=== PATIENT | male | born 1940 | race Caucasian/White ===

== ENCOUNTER 2018-07-24 14:08 | Emergency (ER) | payer MEDICARE, OTHER ==
[~2018-07-24] VITALS: Ht 170.2 cm; Wt 77.1 kg
[~2018-07-24 14:08] MED LIST: ASPIRIN EC325 MG PO; ASPIRIN EC81 MG PO; DULCOLAX STOOL100 MG PO; KEFLEX500 MG PO; LIPITOR40 MG PO; LISINOPRIL10 MG PO; METOPROLOL TART25 MG PO; NOVOLIN 70100 UNIT/1 INJ
[2018-07-24] MEDS ORDERED: ULTRAM50 MG PO (15:43)
== END 2018-07-24 16:27 | disposition home or self-care (01) ==
LOC: ED 14:08
PROC: 0S9D3ZZ Drainage of Left Knee Joint, Percutaneous Approach (ICD-10-PCS; principal; 2018-07-24)
DX: S82.002A Unspecified fracture of left patella, initial encounter for closed fracture (principal); E11.9 Type 2 diabetes mellitus without complications; Z79.4 Long term (current) use of insulin; Z79.82 Long term (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; Z79.899 Other long term (current) drug therapy; W01.0XXA Fall on same level from slipping, tripping and stumbling without subsequent striking against object, initial encounter
CPT/HCPCS: 20610; 73562; 99283-25

== ENCOUNTER 2020-06-03 20:25 | Emergency (ER) | payer OTHER, MEDICARE ==
[~2020-06-03] VITALS: Ht 170.2 cm; Wt 77.1 kg
[~2020-06-03 20:25] MED LIST changes: +ULTRAM50 MG PO
[2020-06-03] MEDS ORDERED: METFORMIN HCL500 M1 PO (21:21)
[2020-06-03] MEDS ORDERED: CARVEDILOL12.5 MG PO (21:21)
[2020-06-03] MEDS ORDERED: HYDROCODON-ACE1 EA10 PO (22:11)
[2020-06-03] MEDS ORDERED: CRUTCH1 EACH MISC (22:12)
== END 2020-06-03 22:36 | disposition home or self-care (01) ==
LOC: ED 20:25
DX: S82.034A Nondisplaced transverse fracture of right patella, initial encounter for closed fracture (principal); W01.0XXA Fall on same level from slipping, tripping and stumbling without subsequent striking against object, initial encounter; E11.9 Type 2 diabetes mellitus without complications; E78.00 Pure hypercholesterolemia, unspecified; I10 Essential (primary) hypertension; Z79.899 Other long term (current) drug therapy; Z79.4 Long term (current) use of insulin; Z79.82 Long term (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
CPT/HCPCS: 73560; 99283-25

== ENCOUNTER 2020-06-09 07:55 | Day surgery (SDC) | payer OTHER, MEDICARE ==
[~2020-06-09] VITALS: Ht 170.2 cm; Wt 80.0 kg
[~2020-06-09 07:55] MED LIST changes: +CARVEDILOL12.5 MG PO; +CRUTCH1 EACH MISC; +HYDROCODON-ACE1 EA10 PO; +METFORMIN HCL500 M1 PO
--- NOTE | 2020-06-09 11:04 | NUR ---
06/09/20 1104 Viki Vargas 1056 PATIENT ARRIVES TO PACU UNRESPONSIVE TO VERBAL STIMULI. RESP EVEN AND UNLABORED, MASK 6 LITERS.
[2020-06-09] MEDS ORDERED: DICLOFENAC SODI75 MG PO (11:05)
[2020-06-09] MEDS ORDERED: XARELTO10 MG PO (11:05)
[2020-06-09] MEDS ORDERED: HYDROCODON-ACE1 EA11 PO (11:05)
--- NOTE | 2020-06-09 11:45 | NUR ---
PATIENT BACK TO ROOM FROM PACU. BEDSIDE REPORT FROM MANISH WISDOM. PATIENT SPINAL AT L1 LEVEL, REPORTS FEELING NUMB. DRESSING C/D/I WITH ICE IN PLACE. AT BEDSIDE, CALL LIGHT WITHIN REACH.
--- NOTE | 2020-06-09 13:22 | NUR ---
STOOD PATIENT AT BEDSIDE WITH 2 PERSON ASSIST, PATIENT REPORTED LEFT LEG "MUST BE A LITTLE NUMB" PATIENT APPEARS TO HAVE TROUBLE STANDING UP AND MOVING LEGS TOWARD WHEELCHAIR. SAT BACK ON BED, BRACE IN LOCKED POSITION. THEN STOOD PATIENT AT BEDSIDE WITH 2 PERSON ASSIST TO USE URINAL, PATIENT VOIDED 100 ML OF CLEAR URINE. PATIENT NOW RESTING BACK IN BED SET UP WITH LUNCH. AT BEDSIDE TO ASSIST. DRESSING TO RIGHT KNEE C/D/I. ICE IN PLACE. CALL LIGHT WITHINR REACH.
--- NOTE | 2020-06-09 13:46 | NUR ---
PATIENT ATE 100% OF LUNCH, REQUESTED TO URINATE AGAIN. UP AT BEDSIDE WITH 2 PERSON STBY ASSIST, PATIENT APPEARS TO BE MORE STABLE ON FEET AND ABLE TO TAKE SIDE STEPS. VOIDED 250 ML OF URINE. BACK TO BED, CALL LIGHT WITHIN REACH. PATIENT'S LEFT AND PLANS TO BE BACK LATER, CONFIRMED CELL PHONE.
--- NOTE | 2020-06-09 14:00 | NUR ---
PATIENT HAD STOOD TO URINATE, APPEARED TO STAND TALL WITH 1 PERSON ASSIST. VOIDED 300 ML OF CLEAR YELLOW URINE. PATIENT STATED " I AM HAVING ALOT OF IN MY BLADDER AND STILL FEEL LIKE I NEED TO GO BAD". BLADDER SCANNED PATIENT WITH ESTIMATE OF 800 ML OF URINE. CALL TO DR. ELDRIDGE WHO VERBALIZED NEW ORDER FOR STRAIGHT CATH.
--- NOTE | 2020-06-09 14:30 | NUR ---
STRAIGHT CATH PERFORMED, 16 GREEK CATHETER WOULD NOT ADVANCE INTO BLADDER. STOPPED AND RETRIED WITH 14 GREEK COUDE, PATIENT TOLERATED WELL AND THERE WAS NO RESISTANCE WITH ADVANCEMENT. BLADDER DRAINING WELL, PATIENT VERBALIZES PAIN IN BLADDER RESOLVING.
--- NOTE | 2020-06-09 15:40 | NUR ---
PATIENT ASSISTED TO STAND AT BEDSIDE TO USE URINAL BY 2 RNs. VOIDED 125 ML OF CLEAR PALE YELLOW URINE. ASSISTED BACK TO BED. CALL LIGHT WITHIN REACH.
--- NOTE | 2020-06-09 16:23 | NUR ---
NOTIFIED DR. DIAZ OF PATIENT LAB VALUES AND NEED FOR CLOSE FOLLOW UP. THEN WALKED RESULTS DOWN TO CLINIC TO DELIVER. DR. DIAZ THEN CALLED DEPARTMENT AND REQUESTED REPEAT CBC AND CMP FOR HIS FOLLOW UP. CALL TO DR. ELDRIDGE WHO OKAYED TO ORDER REPEAT LABS. PATIENT ALSO HAD VOIDED 125 ML OF URINE, AND HAD PVR OF 275 ML WITH BLADDER SCANNER. DR. ELDRIDGE OKAYED FOR PATIENT TO BE ABLE TO DISCHARGE HOME, AND HAS MET CRITERIA IN HOSPITAL. THE VERBALIZED WILL HAVE DAUGHTER AND SON IN LAW TO HELP WITH GETTING PATIENT UP STAIRS INTO HOME. PATIENT IS STANDING STRONG AND ABLE TO TAKE STEPS WITH STBY ASSIST.
--- NOTE | 2020-06-09 17:20 | NUR ---
PROVIDED PATIENT AND WITH DISCHARGE INSTRUCTION. REPEATED INFORMATION SEVERAL TIMES UNTIL PATIENT AND ABLE TO VERBALIZE AND SUMMARIZE INFORMATION FOR CARE AT HOME. WROTE OUT INSTRUCTION ON PATIENT VIKTORIYA WRAP TO REMIND THEM TO KEEP DRESSING IN PLACE AND BRACE ON, AND NOT TO BEND KNEE. PATIENT THEN DRESSED WITH ASSIST AND TRANSFERED WELL OVER TO WHEELCHAIR. DRESSING TO KNEE C/D/I. PROVIDED FRESH ICE PACK.
--- NOTE | 2020-06-12 07:01 | OR ---
[facility] [address] [facility] [place], [place] [address] Signed DATE OF OPERATION: 06/09/2020 SURGEON: Karina Villatoro MD PREOPERATIVE DIAGNOSIS: Right transverse patellar fracture. POSTOPERATIVE DIAGNOSIS: transverse patellar fracture PROCEDURE PERFORMED: Open reduction and internal fixation of right patella. PRODUCT TESTER: Kathie De Leon PA-C. ANESTHESIA: Spinal without BLOOD LOSS: 100 mL. TOURNIQUET TIME: Zero. IMPLANTS: Two Arthrex 3.0 screws and FiberTape. BRIEF HISTORY: Estevan is a 79-year-old gentleman who suffered a ground level fall while walking in the park. He had pain in his knee and was unable to the straight leg raise. He had a mildly displaced relatively transverse patellar fracture. Risks and benefits of operative treatment were discussed with him and he elected to proceed. DESCRIPTION OF PROCEDURE: Once consent was obtained, he was taken to the operating room. After adequate anesthesia, he was placed on operating room table. All downside pressure points were well padded. A well-padded proximal thigh tourniquet was placed and the leg was prepped and draped in a standard sterile fashion. He did have significant swelling and had a little concerned about this, we did not inflate the tourniquet. He was given 1 g TXA Electronically Signed By: KARINA VILLATORO MD 06/12/20 0701 PATIENT NAME: ESTEVAN TRISTAN NGHIA OPERATIVE REPORT DATE OF : 44 REPORT #: [id number] PHYSICIAN: KARINA VILLATORO MD PCP: AGUSTIN DIAZ MD REPORT IS CONFIDENTIAL AND NOT TO BE RELEASED WITHOUT AUTHORIZATION [facility] [address] [place], [place] [address] Signed prior to surgery. The knee was approached through a longitudinal incision carried through skin and subcutaneous tissue. The retinacular was found to be relatively intact. The fracture was palpated, reduced and clamped using a long tenaculum. This was then checked using the image intensifier and biplanar fluoroscopy and found to be good. The two screws for the Arthrex set were then placed proximal 1/[address] in from each side. Relatively poor purchase was obtained. The FiberTape was then placed through the center of the screws in a tension band fashion, tensioned and tied off. The knee was then taken through range of motion and found to be good. There was no gapping at the fracture site. The knot was then buried in the tendon and the wound was copiously irrigated with antibiotic solution, closed with #0 Stratafix for the subcutaneous tissue, and sara for the skin. The wound was dressed with an Acticoat 7 dressing, ABD, and Saroj wrap. He tolerated the procedure well. All sponge, needle, and instrument counts were correct. Karina Villatoro MD BA/ANABELL /[id number] Copies: ~ Electronically Signed By: KARINA VILLATORO MD 06/12/20 0701 PATIENT NAME: ESTEVAN TRISTAN OPERATIVE REPORT DATE OF : 42 REPORT #: [id number] PHYSICIAN: KARINA VILLATORO MD PCP: AGUSTIN DIAZ MD REPORT IS CONFIDENTIAL AND NOT TO BE RELEASED WITHOUT AUTHORIZATION
== END 2020-06-09 17:20 | disposition home or self-care (01) ==
LOC: DS 07:55
PROVIDERS: ATTEND Specialist
PROC: 0QSD04Z Reposition Right Patella with Internal Fixation Device, Open Approach (ICD-10-PCS; principal; 2020-06-09 09:45)
DX: S82.031A Displaced transverse fracture of right patella, initial encounter for closed fracture (principal); G89.18 Other acute postprocedural pain; I25.10 Atherosclerotic heart disease of native coronary artery without angina pectoris; I10 Essential (primary) hypertension; M10.9 Gout, unspecified; E11.9 Type 2 diabetes mellitus without complications; G47.33 Obstructive sleep apnea (adult) (pediatric); W01.198A Fall on same level from slipping, tripping and stumbling with subsequent striking against other object, initial encounter; Y92.830 Public park as the place of occurrence of the external cause; Z79.82 Long term (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; Z79.4 Long term (current) use of insulin
CPT/HCPCS: 73560; 80053; 85025; 93971; J0690; J1100; J2001; J2250; J2405; J2704; J2795; J7040; J7121

== ENCOUNTER 2021-11-03 18:55 | Emergency (ER) | payer MEDICARE, OTHER ==
[~2021-11-03] VITALS: Ht 170.2 cm; Wt 75.8 kg
[~2021-11-03 18:55] MED LIST changes: +DICLOFENAC SODI75 MG PO; +HYDROCODON-ACE1 EA11 PO; +XARELTO10 MG PO
[2021-11-03] MEDS ORDERED: LISINOPRIL20 MG PO (19:44)
[2021-11-03] MEDS ORDERED: JANUVIA25 MG (19:44)
[2021-11-03] MEDS ORDERED: TAMSULOSIN HCL0.4 MG PO (19:44)
[2021-11-03] MEDS ORDERED: ONDANSETRON ODT8 MG PO (23:14)
[2021-11-03] MEDS ORDERED: PERCOCET 5-3251 EACH PO (23:14)
== END 2021-11-03 23:59 | disposition home or self-care (01) ==
LOC: ED 18:55
DX: N13.2 Hydronephrosis with renal and ureteral calculous obstruction (principal); E11.9 Type 2 diabetes mellitus without complications; E78.00 Pure hypercholesterolemia, unspecified; I10 Essential (primary) hypertension; Z79.899 Other long term (current) drug therapy; Z79.84 Long term (current) use of oral hypoglycemic drugs; Z79.4 Long term (current) use of insulin; Z79.82 Long term (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
CPT/HCPCS: 36415; 74176; 80053; 81001; 83690; 85025; 96361; 96374; 96375; 99284-25; A9270; J1170; J2270; J2405; J7030

== ENCOUNTER 2021-11-15 09:15 | Day surgery (SDC) | payer MEDICARE, OTHER ==
[~2021-11-15] VITALS: Ht 170.2 cm; Wt 80.0 kg
--- NOTE | ~2021-11-15 | OR ---
[facility] [address] [facility] [place], [place] [address] Draft DATE OF OPERATION: 11/15/2021 SURGEON: Ulysses Deshpande MD PREOPERATIVE DIAGNOSES: 1. A 12 mm obstructing left ureteropelvic junction calculus. 2. Persistent left-sided flank pain. POSTOPERATIVE DIAGNOSES: 1. A 12 mm obstructing left ureteropelvic junction calculus. 2. Persistent left-sided flank pain. NAMES OF PROCEDURES: 1. Diagnostic cystoscopy with left retrograde pyelogram. 2. Left flexible nephroureteroscopy with laser lithotripsy and basket extraction of stone fragments. 3. Insertion of indwelling ureteral stent into the left collecting system. ANESTHESIA: General. ESTIMATED BLOOD LOSS: Minimal. COMPLICATIONS: None. SPECIMENS: Multiple stone fragments obtained from the left ureteropelvic junction calculus and sent to the lab for stone analysis. DRAINS: A 6 x 26 cm double-J ureteral stent inserted into the left ureter. INDICATION FOR PROCEDURE: Mr. Tristan is a very pleasant 81-year-old gentleman with a prior history of nephrolithiasis who presented to the clinic last week with a 10-day history of severe left-sided flank pain, nausea and vomiting. He had presented to the emergency department a few days prior and underwent a CT scan, which revealed a 12 mm obstructing left ureteropelvic junction calculus. The patient denied any fevers or chills at the PATIENT NAME: TYLER TRISTAN OPERATIVE REPORT DATE OF : 42 REPORT #: [id number] PHYSICIAN: ULYSSES DESHPANDE MD PCP: AGUSTIN DIAZ MD REPORT IS CONFIDENTIAL AND NOT TO BE RELEASED WITHOUT AUTHORIZATION [facility] [address] [place], [place] [address] Draft time, and his urine was negative for infection. He was sent home and immediately referred to me. He presents today to undergo definitive treatment of his stone in the form of left ureteroscopy, laser lithotripsy, basket extraction of stones and left ureteral stent placement. FINDINGS: 1. On cystoscopy, there was no evidence of any suspicious masses, lesions, or stones. Bilateral ureteral orifices are in their normal anatomic location. 2. Left retrograde pyelogram reveals a very large smooth walled calculus in the upper to mid distal left ureter. This is consistent with his 12 mm calculus previously located at the left ureteropelvic junction. 3. Flexible nephroureteroscopy was performed. The stone was fragmented in the mid to proximal left ureter using a holmium laser at 8 and 1 settings. The stone was somewhat difficult to fragment and took a solid hour to fragment into smaller pieces. 95% of the stone burden was a successfully extracted using a Zero tip basket. 4. At the end of the procedure, a 6 x 26 cm double-J ureteral stent was inserted into the patient's left collecting system under direct visualization without difficulty. DESCRIPTION OF PROCEDURE: After informed consent was obtained, the patient was taken back to the operating room. He was transferred from the [facility] to the operating room table, where general anesthesia was induced. He was placed in the dorsal lithotomy position and his genitalia prepped and draped in a standard sterile fashion. Using a 30-degree lens on 22.5-Moroccan introducer, a rigid cystoscope was inserted through his urethra into his bladder under direct visualization. Panendoscopic views of the bladder were then obtained. Please see above findings. A whistle-tip catheter was then used to perform a left retrograde pyelogram. Please see above findings. I inserted a Sensor wire through the whistle-tip catheter into the left collecting system. The catheter was removed fully intact. Over the wire, I passed an 12/30 ureteral access sheath into the left collecting system under fluoroscopic guidance without difficulty. A repeat left retrograde pyelogram was performed to confirm adequate placement of the sheath. I advanced a flexible ureteroscope through the sheath and into the proximal to mid left ureter. This is where I located the 12 mm calculus. It was fragmented with some difficulty using a holmium laser at 8 and 1 settings with a 270 micron fiber. Overall, the stone was fragmented completely and approximately 95% of the stone fragments were successfully extracted today. The remainder of the stone fragments were in the form of stone dust. This should pass fine through the collecting system on its own. Once I was satisfied that all the significant stone fragments had been retrieved, I irrigated the patient's left renal pelvis thoroughly as there were a good deal of soft stone matrix present within the left renal pelvis and lower pole of the left kidney. Irrigation of the kidney will prevent future stone formation in these areas. The flexible ureteroscope was then removed and I passed a Sensor wire through the sheath and into the left renal pelvis. PATIENT NAME: TYLER TRISTAN OPERATIVE REPORT DATE OF : 42 REPORT #: [id number] PHYSICIAN: ULYSSES DESHPANDE MD PCP: AGUSTIN DIAZ MD REPORT IS CONFIDENTIAL AND NOT TO BE RELEASED WITHOUT AUTHORIZATION [address] [address] Draft The ureteral access sheath was then removed fully intact. Over the wire, I passed a 6 x 26 cm double-J ureteral stent into the patient's left collecting system under direct visualization. Once the Sensor wire was pulled an adequate proximal coil was seen on in the left renal pelvis on fluoroscopy. An adequate distal coil was noted on cystoscopy. The patient's bladder was then drained and the cystoscope was removed. The stent was placed without a string today. The patient tolerated the procedure well without any complication. He will now be transferred to the postanesthesia care unit in stable condition. DISPOSITION: I discussed the details of today's procedure with the patient's and answered all of her questions. He will be sent home later today with Cipro 250 mg p.o. b.i.d. for a total of 7 days along with oxycodone 5 mg one tab p.o. q.6 hours p.r.n. pain, dispense #20 as needed for pain. He will be scheduled return to clinic on November 29 to undergo cystoscopy with left ureteral stent extraction. MD JULIO C Deal/VARGHESE /[id number] Copies: ~ PATIENT NAME: KUNTYLER AGRAWAL OPERATIVE REPORT DATE OF : 42 REPORT #: [id number] PHYSICIAN: ULYSSES DESHPANDE MD PCP: AGUSTIN DIAZ MD REPORT IS CONFIDENTIAL AND NOT TO BE RELEASED WITHOUT AUTHORIZATION
[~2021-11-15 09:15] MED LIST changes: +JANUVIA25 MG; +LISINOPRIL20 MG PO; +ONDANSETRON ODT8 MG PO; +PERCOCET 5-3251 EACH PO; +TAMSULOSIN HCL0.4 MG PO
--- NOTE | 2021-11-15 14:27 | NUR ---
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 VSS. PT NONAROUSABLE. 1407 PT WOKE AND COUGHING, AIRWAY REMOVED. PT EASILY FALLS BACK TO SLEEP. 1413 O2 REMOVED AND PT DENIES PAIN. PT REORIENTED AND EASILY FALLS BACK TO SLEEP. 1421 O2 89% AND DEEP BREATHING ENCOURAGED. 2L NC PLACED. O2 INCREASED TO MID 90S.
--- NOTE | 2021-11-15 15:03 | NUR ---
[id number] BACK TO ROOM FROM PACU ON 2L VIA UT. RECEIVED REPORT FROM JAYESH WISDOM. PATIENT IS AWAKE AND TALKING. RESP EVEN AND UNLABORED. RATES PAIN 5/10. DENIES NAUSEA. NO DRAINAGE NOTED. TAKING SIPS OF WATER. STATES FEELS THE NEED TO URINATE. EDUCATION GIVEN ON WHY THE NEED TO URINATE. CALL LIGHT WITHIN REACH. 1450-PAIN MEDICATION GIVEN.
--- NOTE | 2021-11-15 15:32 | NUR ---
1520-PATIENT UP TO BEDSIDE COMMODE WITH 2 RN ASSIST. SMALL BLOOD CLOT NOTED. PATIENT HAS A SMALL AMOUNT OF RED DRAINAGE ON GOWN. PATIENT VOIDED 175ML OF . URINE. GOWN CHANGED. 1530-PATIENT BACK TO BED. CALL LIGHT WITHIN REACH.
--- NOTE | 2021-11-15 16:03 | NUR ---
1540-PATIENT UP TO BESIDE COMMODE. 1550-PATIENT WOULD LIKE TO CONTINUE TO SIT ON THE COMMODE. PATIENT STATES FEELS BETTER TO SIT. STATES PAIN IS STILL A 5/10. 1600-PATIENT STILL SITTING ON COMMODE. O2 TITRATED OFF. O2 SAT AT 99% ON RA.
--- NOTE | 2021-11-15 16:09 | NUR ---
PATIENT SITTING ON THE COMMODE. RESP EVEN AND UNLABORED. VSS. RATES PAIN 5/10 AND DENIES NASUEA. SMALL AMOUNT OF DRAINAGE NOTED. PATIENT DRINKING WATER. CALL LIGHTWITH IN REACH.
--- NOTE | 2021-11-15 16:19 | NUR ---
1615-PATIENT READY TO GO HOME AND IS GETTING DRESSED.
--- NOTE | 2021-11-15 16:47 | NUR ---
1610-PATIENT VOIDED 250ML OF URINE. 1630-DISCHARGE INSTRUCTIONS GIVEN TO PATIENT. ALL QUESTIONS ANSWERED. PATIENT AMBULATES TO WHEELCHAIR. GAIT UNSTEADY BUT TOLERATED WELL. PROVIDED RIDE TO FRONT OF HOSPITAL WHERE WAS WAITING WITH THE CAR. PROVIDED WITH DISCHARGE INSTRUCTIONS AND ALL HER QUESTIONS ANSWRED.
[2021-11-18] MEDS ORDERED: CIPROFLOXACIN250 MG PO (16:22)
== END 2021-11-15 16:30 | disposition home or self-care (01) ==
LOC: DS 09:15
PROVIDERS: ATTEND Urology
PROC: 0TC78ZZ Extirpation of Matter from Left Ureter, Via Natural or Artificial Opening Endoscopic (ICD-10-PCS; principal; 2021-11-15 11:15)
PROC: 0T778DZ Dilation of Left Ureter with Intraluminal Device, Via Natural or Artificial Opening Endoscopic (ICD-10-PCS; 2021-11-15 11:15)
DX: N13.2 Hydronephrosis with renal and ureteral calculous obstruction (principal); I25.10 Atherosclerotic heart disease of native coronary artery without angina pectoris; E11.9 Type 2 diabetes mellitus without complications; Z95.1 Presence of aortocoronary bypass graft; I10 Essential (primary) hypertension; Z79.84 Long term (current) use of oral hypoglycemic drugs; Z79.4 Long term (current) use of insulin; Z95.5 Presence of coronary angioplasty implant and graft; N40.1 Benign prostatic hyperplasia with lower urinary tract symptoms; N13.8 Other obstructive and reflux uropathy
CPT/HCPCS: 74420; C1769; J0690; J1100; J1160; J1720; J1885; J2405; J2704; J2765; J3010; J3475; J7121; Q9967

== ENCOUNTER 2023-09-16 21:55 | Inpatient (IN) | payer MEDICARE, OTHER ==
[~2023-09-16] VITALS: Ht 170.2 cm; Wt 79.7 kg
[~2023-09-16 21:55] MED LIST changes: +BENZONATATE100 MG PO; +CIPROFLOXACIN250 MG PO; +DOXYCYCLINE HY100 MG PO; +JANUVIA100 MG PO; -JANUVIA25 MG; +PAXLOVID 300-11 EAC1 PO
[2023-09-16] MEDS ORDERED: SODIUM CHLORIDE 0.9% 1,000 ML IV PRN (22:00)
[2023-09-16 22:45] LABS: BILIRUBIN, URINE NEGATIVE (negative); BLOOD/HGB, URINE NEGATIVE (Negative); KETONE, URINE TRACE (Negative); LEUK ESTERASE, URINE NEGATIVE (negative); NITRITE, URINE NEGATIVE (negative); PH, URINE 5.5 (5-7)
[2023-09-16 22:51] LABS: EPITHELIAL CELLS, URINE SQUAMOUS 1+ /lpf (0-1+)
[2023-09-16 22:52] LABS: BACTERIA, URINE RARE /hpf (negative); CASTS, URINE NONE SEEN \\lpf; COLLECTION TYPE, URINE CLEAN CATCH; CRYSTALS, URINE NONE SEEN (0-1+)
[2023-09-16 22:53] LABS: REFLEX CULTURE, URINE No (No)
[2023-09-16 22:54] LABS: HEMATOCRIT 31.2 % (35.0-50.0); HEMOGLOBIN 10.5 g/dL (12.0-18.0); MCH 26.5 (27-36); MCHC 33.7 g/dl (30-36); MCV 78.6 fl (81-99); PLATELET COUNT 65 K/uL (140-440); RBC 3.97 M/ul (4.3-5.7); RDW 17.9 (10.5-15.0)
[2023-09-16 22:59] LABS: ALBUMIN/GLOBULIN RATIO 1.25 (1.1-2.4); ALCOHOL, MEDICAL <3 ng/dL (<3); ALKALINE PHOSPHATASE 97 U/L (46-116); ALT (SGPT) 17 U/L (14-59); ANION GAP 13.3 (7-21); AST (SGOT) 25 U/L (15-37); BILIRUBIN, TOTAL 1.9 ng/dL (0.2-1.0); BUN/CREATININE RATIO 16.21 (6.0-28.6); CALCIUM 8.3 mg/dL (8.5-10.1); CARBON DIOXIDE 26 mmol/L (21-32); CHLORIDE 92 mmol/L (98-107); CREATININE, SERUM 1.11 mg/dL (0.70-1.30); GLOMERULAR FILTRATION RATE,EST 67 mL/min (>60); POTASSIUM 4.3 mmol/L (3.5-5.1); PROTEIN, TOTAL 7.2 g/dL (6.4-8.2); UREA NITROGEN 18 mg/dL (7-18)
[2023-09-16 23:03] LABS: BANDS, MANUAL DIFF 19; LYMPHOCYTES, MANUAL DIFF 6; MONOCYTES, MANUAL DIFF 14; NEUTROPHILS, MANUAL DIFF 61
[2023-09-17] VITALS (18 sets, daily range): BP systolic 96–154; BP diastolic 40–100
[2023-09-17] MEDS ORDERED: HYDROmorphone HCL 1 MG/ML SYR IV PRN (01:45)
[2023-09-17] MEDS ORDERED: LACTATED RINGER'S 1,000 ML IV SCH (01:45)
[2023-09-17] MEDS ORDERED: ALBUTEROL/IPRATROPIUM 3 ML NEB INH ONE (02:15)
[2023-09-17] MEDS ORDERED: FUROSEMIDE 40 MG/4 ML VIAL IV ONE (02:30)
[2023-09-17] MEDS ORDERED: methylPREDNISolone SOD SUCC 125 MG/2 ML VIAL IV ONE (02:45)
[2023-09-17] MEDS ORDERED: CEFTRIAXONE/SODIUM CHLORIDE 2 GM/100 ML PIGGYBACK IV ONE (02:45)
[2023-09-17] MEDS ORDERED: AZITHROMYCIN 250 MG TAB PO ONE (02:45)
[2023-09-17 03:43] LABS: LACTIC ACID, BLOOD 2.1 mmol/L (0.4-2.0)
[2023-09-17] MEDS ORDERED: REMDESIVIR 200 MG in SODIUM CHLORIDE 0.9% 210 ML IV ONE (04:30)
[2023-09-17] MEDS ORDERED: ALBUTEROL/IPRATROPIUM 3 ML NEB INH PRN (05:00)
[2023-09-17] MEDS ORDERED: ACETAMINOPHEN 325 MG TAB PO PRN ×2 (05:00→09:15)
[2023-09-17] MEDS ORDERED: ondansetron HCL 4 MG/2 ML VIAL IV PRN ×2 (05:00→09:15)
[2023-09-17] MEDS ORDERED: LIDOCAINE 2% VISCOUS 6 ML SYR TOP ONE (05:00)
[2023-09-17] MEDS ORDERED: SODIUM CHLORIDE 0.9% 250 ML IV ONE (05:32)
[2023-09-17] MEDS ORDERED: NOREPINEPHRINE BITARTRATE 250 ML IV SCH (06:30)
[2023-09-17] MEDS ORDERED: POTASSIUM CHLORIDE 10 MEQ TABCR PO SCH (09:00)
[2023-09-17] MEDS ORDERED: FUROSEMIDE 40 MG/4 ML VIAL IV SCH (09:00)
[2023-09-17] MEDS ORDERED: ENOXAPARIN SODIUM 40 MG/0.4 ML SYR SUB-Q SCH (09:03)
[2023-09-17] MEDS ORDERED: DEXTROSE 5% 1,000 ML IV PRN (09:15)
[2023-09-17] MEDS ORDERED: GLUCAGON,HUMAN RECOMBINANT 1 MG/ML VIAL SUB-Q PRN (09:15)
[2023-09-17] MEDS ORDERED: IBLOOD GLUCOSE TEST STRIP 1 EA TEST XX PRN (09:15)
[2023-09-17] MEDS ORDERED: DEXTROSE 50% 50 ML SYR IV PRN ×2 (09:15)
[2023-09-17 10:21] LABS: HEMATOCRIT 29.4 % (35.0-50.0); HEMOGLOBIN 10.1 g/dL (12.0-18.0); MCH 26.8 (27-36); MCHC 34.2 g/dl (30-36); MCV 78.4 fl (81-99); PLATELET COUNT 67 K/uL (140-440); RBC 3.75 M/ul (4.3-5.7); RDW 17.9 (10.5-15.0)
[2023-09-17 10:39] LABS: ANION GAP 16.9 (7-21); BUN/CREATININE RATIO 19.64 (6.0-28.6); CALCIUM 7.7 mg/dL (8.5-10.1); CREATININE, SERUM 1.12 mg/dL (0.70-1.30); POTASSIUM 3.9 mmol/L (3.5-5.1)
[2023-09-17 10:55] LABS: ABO O; ANTIBODY SCREEN NEGATIVE; RH POSITIVE
[2023-09-17 11:11] LABS: BANDS, MANUAL DIFF 60; LYMPHOCYTES, MANUAL DIFF 5; MONOCYTES, MANUAL DIFF 5; NEUTROPHILS, MANUAL DIFF 23
[2023-09-17 11:17] LABS: BASOPHILS, MANUAL DIFF 0; EOSINOPHILS, MANUAL DIFF 0
[2023-09-17] MEDS ORDERED: INSULIN LISPRO 100 UNIT/ML ML SUB-Q SCH (12:00)
[2023-09-17] MEDS ORDERED: BENZONATATE 100 MG CAP PO PRN (12:00)
[2023-09-17] MEDS ORDERED: PHARMACY RENAL DOSE ADJUSTMENT 1 DOSE MISC PO SCH (12:00)
[2023-09-17] MEDS ORDERED: IBLOOD GLUCOSE TEST STRIP 1 EA TEST VI SCH (12:00)
[2023-09-17] MEDS ORDERED: MENTHOL/CETYLPYRD CL 1 LOZ LOZENGE PO SCH (12:00)
[2023-09-17] MEDS ORDERED: phenoL 177 ML SPRAY MT PRN (12:00)
[2023-09-17] MEDS ORDERED: guaiFENesin 600 MG TABCR PO PRN (12:00)
[2023-09-17] MEDS ORDERED: ATORVASTATIN CA10 MG PO (16:41)
--- OUTSIDE RECORDS SUMMARY | 2023-09-17 18:44 | XMS ---
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 - 2 Visits in 30 Days CARE PROVIDERS There are no care providers on record at this time. Al[facility] has no Care Guidelines for this patient. [facility] V[facility] (12 MO.) [facility] T[facility] NOTE: Visits indicate total known visits. ED/C VISIT TRACKING (12 MO.) 09/16/2023 21:56 [facility] [place] [facility] COMPLAINT: - WEAKNESS 09/16/2023 16:34 DEMETRIO Avilez OR TYPE: Emergency COMPLAINT: - SORE THROAT 04/20/2023 12:15 DEM[facility] Avilez [place] TYPE: Emergency COMPLAINT: - FLU SYMPTOMS DIAGNOSES: - Cough, unspecified - COVID-19 - Essential (primary) hypertension - Hyperkalemia - Hypo-osmolality and hyponatremia - manager intermediate (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 - USP (current) use of insulin - manager intermediate (current) use of oral hypoglycemic drugs - Other termite technician (current) drug therapy - Pneumonia, unspecified organism - Pure hypercholesterolemia, unspecified - Type 2 diabetes mellitus without complications INPATIENT VISIT TRACKING (12 MO.) No inpatient visits to display in this time frame [email or web address]
[2023-09-17] MEDS ORDERED: INSULIN GLARGINE-YFGN 100 UNIT/ML ML SUB-Q SCH (21:00)
--- NOTE | 2023-09-17 22:31 | EKG ---
[facility] [address] [facility] [place] [address] Signed Normal sinus rhythm Low voltage QRS Cannot rule out Anteroseptal infarct (cited on or before 07-JUN-2020) Abnormal ECG When compared with ECG of 16-SEP-2023 17:00, premature atrial complexes are no longer present Confirmed by Nieves Snowden MD () on 09/17/2023 10:31:14 PM Electronically Signed By: NIEVES SNOWDEN MD 09/17/232230 PATIENT NAME: TYLER TRISTAN Electrocardiogram DATE OF : 42 PHYSICIAN: NIEVES SNOWDEN MD REPORT #: [id number] REPORT IS CONFIDENTIAL AND NOT TO BE RELEASED WITHOUT AUTHORIZATION
[2023-09-18] VITALS (10 sets, daily range): BP systolic 109–144; BP diastolic 47–82
[2023-09-18 06:25] LABS: HEMATOCRIT 30.7 % (35.0-50.0); HEMOGLOBIN 10.6 g/dL (12.0-18.0); MCH 26.7 (27-36); MCHC 34.3 g/dl (30-36); MCV 77.9 fl (81-99); PLATELET COUNT 62 K/uL (140-440); RBC 3.95 M/ul (4.3-5.7); RDW 18.6 (10.5-15.0)
[2023-09-18 06:39] LABS: ALBUMIN 3.2 g/dL (3.4-5.0); ALBUMIN/GLOBULIN RATIO 0.94 (1.1-2.4); BILIRUBIN, TOTAL 1.6 ng/dL (0.2-1.0); BUN/CREATININE RATIO 34.61 (6.0-28.6); CALCIUM 8.3 mg/dL (8.5-10.1); CREATININE, SERUM 1.04 mg/dL (0.70-1.30); MAGNESIUM 1.9 mg/dL (1.8-2.4); PHOSPHORUS, INORGANIC 3.2 mg/dL (2.5-4.9); PROTEIN, TOTAL 6.6 g/dL (6.4-8.2)
[2023-09-18 07:03] LABS: BANDS, MANUAL DIFF 60; BASOPHILS, MANUAL DIFF 0; EOSINOPHILS, MANUAL DIFF 0; LYMPHOCYTES, MANUAL DIFF 12; MONOCYTES, MANUAL DIFF 3; NEUTROPHILS, MANUAL DIFF 18
[2023-09-18] MEDS ORDERED: ALBUTEROL/IPRATROPIUM 3 ML NEB INH SCH (08:00)
[2023-09-18] MEDS ORDERED: REMDESIVIR 100 MG in SODIUM CHLORIDE 0.9% 230 ML IV SCH (09:00)
[2023-09-18] MEDS ORDERED: DEXAMETHASONE SOD PHOS 10 MG/ML VIAL IV SCH (09:00)
[2023-09-18] MEDS ORDERED: CEFTRIAXONE/SODIUM CHLORIDE 2 GM/100 ML PIGGYBACK IV SCH (09:00)
[2023-09-18] MEDS ORDERED: AZITHROMYCIN 500 MG in DEXTROSE 5% 250 ML IV SCH (09:00)
[2023-09-18] MEDS ORDERED: DENTA 5000 PLUS51 GM MM (09:19)
[2023-09-18] MEDS ORDERED: VITAMIN D325 MCG PO (10:58)
[2023-09-18] MEDS ORDERED: VITAMIN B-121000 MCG PO (10:59)
[2023-09-19] VITALS (9 sets, daily range): BP systolic 106–140; BP diastolic 52–90
[2023-09-19] MEDS ORDERED: TAMSULOSIN HCL 0.4 MG CAP PO SCH (09:34)
[2023-09-19] MEDS ORDERED: TURMERIC500 M3 PO (10:27)
[2023-09-19] MEDS ORDERED: TAMSULOSIN HCL 0.4 MG CAP PO ONE (16:45)
[2023-09-20 05:19] VITALS: BP 99/72
[2023-09-20 05:34] VITALS: BP 99/72
[2023-09-20] MEDS ORDERED: TAMSULOSIN HCL 0.4 MG CAP PO SCH ×2 (09:00)
[2023-09-20 09:52] VITALS: BP 143/49
[2023-09-20 11:17] VITALS: BP 143/49
[2023-09-20 13:11] VITALS: BP 134/49
[2023-09-20] MEDS ORDERED: PREDNISONE20 MG PO (14:57)
[2023-09-20] MEDS ORDERED: AMOX TR-K CLV1 EACH PO (14:58)
== END 2023-09-20 16:00 | disposition home or self-care (01) | DRG 177 ==
LOC: ED 21:55 → CCU 09-17 04:55 → MS 09-17 21:16
PROVIDERS: Internal Medicine; ADMIT Family Medicine; ATTEND Family Medicine
PROC: XW033E5 Introduction of Remdesivir Anti-infective into Peripheral Vein, Percutaneous Approach, New Technology Group 5 (ICD-10-PCS; principal; 2023-09-17)
PROC: 3E0333Z Introduction of Anti-inflammatory into Peripheral Vein, Percutaneous Approach (ICD-10-PCS; 2023-09-17)
PROC: 3E033XZ Introduction of Vasopressor into Peripheral Vein, Percutaneous Approach (ICD-10-PCS; 2023-09-17)
PROC: 5A09357 Assistance with Respiratory Ventilation, Less than 24 Consecutive Hours, Continuous Positive Airway Pressure (ICD-10-PCS; 2023-09-17)
DX: U07.1 COVID-19 (principal); I50.33 Acute on chronic diastolic (congestive) heart failure; J12.82 Pneumonia due to coronavirus disease 2019; J96.01 Acute respiratory failure with hypoxia; E87.1 Hypo-osmolality and hyponatremia; E78.00 Pure hypercholesterolemia, unspecified; Z66 Do not resuscitate; S40.811A Abrasion of right upper arm, initial encounter; I95.9 Hypotension, unspecified; I11.0 Hypertensive heart disease with heart failure; D69.6 Thrombocytopenia, unspecified; S00.83XA Contusion of other part of head, initial encounter; E11.9 Type 2 diabetes mellitus without complications; Z90.89 Acquired absence of other organs; Z95.5 Presence of coronary angioplasty implant and graft; Z79.899 Other long term (current) drug therapy; Z79.84 Long term (current) use of oral hypoglycemic drugs; Z79.4 Long term (current) use of insulin; Z79.82 Long term (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; W19.XXXA Unspecified fall, initial encounter
CPT/HCPCS: 36415; 70450; 70486; 70496; 70498; 71045; 71260; 72125; 80048; 80053; 81001; 83036; 83605; 83735; 83880; 84100; 84484; 85025; 85379; 86850; 86900; 86901; 93005; 93010; 93306; 94640; 94660; 94667; 94761; 94762; 94799; 97162; 97166; 97530; 97535; A9270; G0480; J0248; J0456; J0696; J1100; J1650; J1815; J1940; J2919; J7030; J7050; J7060; Q9967

== ENCOUNTER 2024-02-26 21:11 | Emergency (ER) | payer MEDICARE, OTHER ==
[~2024-02-26] VITALS: Ht 170.2 cm; Wt 77.6 kg
[~2024-02-26 21:11] MED LIST changes: +AMOX TR-K CLV1 EACH PO; +ATORVASTATIN CA10 MG PO; +DENTA 5000 PLUS51 GM MM; +PREDNISONE20 MG PO; +TURMERIC500 M3 PO; +VITAMIN B-121000 MCG PO; +VITAMIN D325 MCG PO
[2024-02-26 21:35] LABS: BASOPHILS 0.4 % (0-2); EOSINOPHILS 7.1 % (0-6); HEMATOCRIT 32.4 % (35.0-50.0); HEMOGLOBIN 10.4 g/dL (12.0-18.0); LYMPHOCYTES 7.6 % (24-44); MCH 26.5 (27-36); MCHC 32.3 g/dl (30-36); MONOCYTES 10.6 % (0-12); NEUTROPHILS 74.3 % (39-80); PLATELET COUNT 137 K/uL (140-440); RBC 3.95 M/ul (4.3-5.7); RDW 18.5 (10.5-15.0)
[2024-02-26 21:49] LABS: ALBUMIN/GLOBULIN RATIO 1.08 (1.1-2.4); ANION GAP 14.2 (7-21); BILIRUBIN, TOTAL 1.4 ng/dL (0.2-1.0); BUN/CREATININE RATIO 22.22 (6.0-28.6); CALCIUM 8.4 mg/dL (8.5-10.1); CREATININE, SERUM 1.08 mg/dL (0.70-1.30); POTASSIUM 5.2 mmol/L (3.5-5.1); PROTEIN, TOTAL 7.7 g/dL (6.4-8.2)
[2024-02-26 23:29] LABS: BILIRUBIN, URINE NEGATIVE (negative); BLOOD/HGB, URINE LARGE (Negative); KETONE, URINE NEGATIVE (Negative); LEUK ESTERASE, URINE NEGATIVE (negative); NITRITE, URINE NEGATIVE (negative); PH, URINE 5.5 (5-7)
[2024-02-26 23:34] LABS: EPITHELIAL CELLS, URINE SQUAMOUS 1+ /lpf (0-1+); RED BLOOD CELLS, URINE 21-40 /hpf (0-5); WHITE BLOOD CELLS, URINE 0-1 /HPF (0-5)
[2024-02-26 23:36] LABS: BACTERIA, URINE RARE /hpf (negative); CASTS, URINE NONE SEEN \\lpf; COLLECTION TYPE, URINE CLEAN CATCH; CRYSTALS, URINE URIC ACID 4+ (0-1+)
[2024-02-26 23:37] LABS: REFLEX CULTURE, URINE No (No)
[2024-02-26] MEDS ORDERED: HYDROCODON-ACE1 EA10 PO (23:43)
[2024-02-26] MEDS ORDERED: FLOMAX0.4 MG PO (23:43)
[2024-02-26] MEDS ORDERED: ONDANSETRON 4 MG HOME.PACK SL ONE (23:45)
[2024-02-26] MEDS ORDERED: HYDROCODONE BIT/ACETAMINOPHEN 5/325 MG 1 TAB HOME.PACK PO ONE (23:45)
[2024-02-26] MEDS ORDERED: TAMSULOSIN HCL 0.4 MG CAP PO ONE (23:45)
[2024-02-26 23:57] VITALS: BP 139/54
== END 2024-02-26 23:59 | disposition home or self-care (01) ==
LOC: ED 21:11
PROVIDERS: Family Medicine
DX: N13.2 Hydronephrosis with renal and ureteral calculous obstruction (principal); E11.9 Type 2 diabetes mellitus without complications; I10 Essential (primary) hypertension; Z79.84 Long term (current) use of oral hypoglycemic drugs; Z79.4 Long term (current) use of insulin; Z79.899 Other long term (current) drug therapy
CPT/HCPCS: 36415; 74176; 80053; 81001; 85025; 99284-25; A9270

== ENCOUNTER 2024-06-25 12:35 | Emergency (ER) | payer MEDICARE, OTHER ==
[~2024-06-25] VITALS: Ht 170.2 cm; Wt 78.0 kg
[~2024-06-25 12:35] MED LIST changes: +FLOMAX0.4 MG PO
[2024-06-25] MEDS ORDERED: AMOX TR-K CLV1 EAC1 PO (13:09)
[2024-06-25] MEDS ORDERED: COLCHICINE0.6 M1 PO (14:25)
[2024-06-25] MEDS ORDERED: BACTRIM DS TAB1 EACH PO (14:25)
[2024-06-25] MEDS ORDERED: COLCHICINE 0.6 MG TAB PO ONE (14:30)
[2024-06-25 14:38] VITALS: BP 112/46
== END 2024-06-25 14:38 | disposition home or self-care (01) ==
LOC: ED 12:35
DX: M25.572 Pain in left ankle and joints of left foot (principal); Z79.84 Long term (current) use of oral hypoglycemic drugs
CPT/HCPCS: 99283

== ENCOUNTER 2024-08-11 12:22 | Observation (INO) | payer MEDICARE, OTHER ==
[2024-08-11] VITALS (7 sets, daily range): BP systolic 108–144; BP diastolic 42–47
[~2024-08-11] VITALS: Ht 170.2 cm; Wt 73.7 kg
[~2024-08-11 12:22] MED LIST changes: +AMOX TR-K CLV1 EAC1 PO; +BACTRIM DS TAB1 EACH PO; +COLCHICINE0.6 M1 PO; -NOVOLIN 70100 UNIT/1 INJ; +NOVOLIN 70100 UNIT/1 SUB-Q
--- OUTSIDE RECORDS SUMMARY | 2024-08-11 12:29 | XMS ---
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 Almas has no Care Guidelines for this patient. [facility] ([facility] MO.) [facility] T[facility] 6 NOTE: Visits indicate total known visits. 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 [place] TYPE: Emergency COMPLAINT: - LT FOOT PAIN DIAGNOSES: - jail (current) use of oral hypoglycemic drugs - Pain in left ankle and joints of left foot - Pain in left foot 02/26/2024 21:11 [facility] [place] TYPE: Emergency COMPLAINT: - SIDE PAIN DIAGNOSES: - Essential (primary) hypertension - Hydronephrosis with renal and ureteral calculous obstruction - jail (current) use of insulin - jail (current) use of oral hypoglycemic drugs - Other superintendent marine oil terminal (current) drug therapy - Type 2 diabetes mellitus without complications - Unspecified abdominal pain 09/16/2023 21:56 DEMETRIO Avilez [place] TYPE: Emergency COMPLAINT: - WEAKNESS 09/16/2023 16:34 DEMETRI[facility] Avilez OR TYPE: Emergency COMPLAINT: - SORE THROAT DIAGNOSES: - COVID-19 - Essential (primary) hypertension - jail (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 - 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 - jail (current) use of oral hypoglycemic drugs - Other superintendent marine 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 terminal (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) drug therapy - Pure hypercholesterolemia, unspecified - Type 2 diabetes mellitus without complications - Weakness INPATIENT VISIT TRACKING (12 MO.) 09/17/2023 04:55 DEMETRIO Avilez [place] TYPE: Medical Surgical COMPLAINT: - COVID PNEUMONIA/CHF EXACERBATION DIAGNOSES: - Abrasion of right upper arm, initial encounter - Abrasion of right upper arm, initial encounter - Acquired absence of other organs - Acquired absence of other organs - Acute on chronic diastolic (congestive) heart failure - Acute respiratory failure with hypoxia - Acute respiratory failure with hypoxia - Contusion of other part of head, initial encounter - Contusion of other part of head, initial encounter - COVID-19 - COVID-19 - Do not resuscitate - Essential (primary) hypertension - Hypertensive heart disease with heart failure - Hypo-osmolality and hyponatremia - Hypotension, unspecified - jail (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 - 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 driver (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 - 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 - 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 - jail (current) use of oral hypoglycemic drugs - 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 driver (current) use of oral hypoglycemic drugs - Other superintendent marine oil terminal (current) drug therapy - Other superintendent marine oil terminal (current) drug therapy - Pneumonia due to coronavirus disease 2019 - Pneumonia due to coronavirus disease 2019 - Pneumonia, unspecified organism - Presence of coronary angioplasty implant and graft - Presence of coronary angioplasty implant and graft - Pure hypercholesterolemia, unspecified - Pure hypercholesterolemia, unspecified - Thrombocytopenia, unspecified - Type 2 diabetes mellitus without complications - Type 2 diabetes mellitus without complications - Unspecified fall, initial encounter - Unspecified fall, initial encounter [email or web address]
[2024-08-11] MEDS ORDERED: ALLOPURINOL100 MG PO (13:06)
[2024-08-11 13:23] LABS: BASOPHILS 0.6 % (0.2-1.2); EOSINOPHILS 5.2 % (0.8-7.0); HEMATOCRIT 21.8 % (40.1-51.0); HEMOGLOBIN 6.6 g/dL (13.7-17.5); LYMPHOCYTES 34.9 % (21.8-53.1); MCH 27.7 PG (25.7-32.2); MCHC 30.3 g/dL (32.3-36.5); MCV 91.6 fL (79.0-92.2); MONOCYTES 8.7 % (5.3-12.2); PLATELET COUNT 74 K/uL (163-337)
[2024-08-11 13:26] LABS: RBC 2.38 M/uL (4.63-6.08)
[2024-08-11 13:38] LABS: ALBUMIN 3.7 g/dL (3.4-5.0); ALBUMIN/GLOBULIN RATIO 1.06 (1.1-2.4); ANION GAP 17.7 (7-21); BILIRUBIN, TOTAL 1.1 mg/dL (0.2-1.0); BUN/CREATININE RATIO 31.25 (6.0-28.6); CALCIUM 8.9 mg/dL (8.5-10.1); CREATININE, SERUM 1.28 mg/dL (0.70-1.30); PROTEIN, TOTAL 7.2 g/dL (6.4-8.2)
[2024-08-11 13:39] LABS: POTASSIUM 6.7 mmol/L (3.5-5.1)
[2024-08-11] MEDS ORDERED: Insulin Regular, Human 100 UNIT/ML ML IV ONE (13:45)
[2024-08-11] MEDS ORDERED: ALBUTEROL SULFATE 0.5% 2.5 MG/0.5 ML VIAL INH ONE (13:45)
[2024-08-11] MEDS ORDERED: Calcium Gluconate in NS 1,000 MG/50 ML BAG IV ONE (13:45)
[2024-08-11] MEDS ORDERED: SODIUM POLYSTYRENE SULFONATE 15 GM/60 ML UDC PO ONE (13:45)
[2024-08-11] MEDS ORDERED: DEXTROSE 50% 50 ML SYR IV ONE (13:45)
[2024-08-11 14:02] LABS: ABO O; ANTIBODY SCREEN NEGATIVE; RH POSITIVE
[2024-08-11] MEDS ORDERED: ondansetron HCL 4 MG/2 ML VIAL IV PRN (16:00)
[2024-08-11] MEDS ORDERED: IBLOOD GLUCOSE TEST STRIP 1 EA TEST XX PRN (16:00)
[2024-08-11] MEDS ORDERED: DEXTROSE 5% 1,000 ML IV PRN (16:00)
[2024-08-11] MEDS ORDERED: GLUCAGON,HUMAN RECOMBINANT 1 MG/ML VIAL SUB-Q PRN (16:00)
[2024-08-11] MEDS ORDERED: ACETAMINOPHEN 325 MG TAB PO PRN (16:00)
[2024-08-11] MEDS ORDERED: DEXTROSE 50% 50 ML SYR IV PRN ×2 (16:00)
[2024-08-11 16:11] LABS: IS CROSSMATCH COMPATIBLE
--- NOTE | 2024-08-11 16:45 | NUR ---
PATIENT ARRIVES TO FLOOR ESCORTED BY THIS RN AFTER RECEIVING REPORT FROM ALYX CHAO IN THE EMERGENCY DEPARTMENT. PATIENT TRANSFERS HIMSELF FROM [facility] TO HOSPITAL WITH SUPERVISION ONLY. VS AND WT OBTAINED AND RECORDED. THIS RN REMAINS IN ROOM TO COMPLETE ADMISSION.
[2024-08-11] MEDS ORDERED: INSULIN LISPRO 100 UNIT/ML ML SUB-Q SCH (17:00)
[2024-08-11] MEDS ORDERED: IBLOOD GLUCOSE TEST STRIP 1 EA TEST VI SCH (17:00)
--- NOTE | 2024-08-11 17:10 | NUR ---
ADMISSION COMPLETE. PATIENT USES BSC AND URINAL TO VOID AND HAVE A BOWEL MOVEMENT. ASSISTED WITH VJ-CARE D/T PATIENT'S TREMOR IN HIS LEFT HAND. PATIENT REPORTS HE USUALLY PROVIDES HIS OWN VJ-CARE AT HOME. PATIENT IS PALE AND COOL TO THE TOUCH, WARM BLANKETS PROVIDED. PATIENT IS RESTING IN BED WITH NO REQUESTS AT THIS TIME. CALL LIGHT AND PERSONAL BELONGINGS IN REACH.
--- NOTE | 2024-08-11 17:56 | NUR ---
PATIENT RESTING IN BED. ONE UNIT OF PACKED RED CELLS INFUSING TO PATIENT'S RIGHT AC WNL, UNIT STARTED AT 1743 PATIENT SO FAR TOLERATING WELL. PATIENT'S REPEAT 15 MINUTE VITALS ARE STABLE. PATIENT DENIES ANY DISCOMFORT. BLOOD ADMINISTRATION RATE INCREASED FROM 50ML/HR TO 150ML/HR AT THIS TIME. SUPPER TRAY ARRIVES. PATIENT IS EATING SUPPER AND WATCHING TELEVISION AT THIS TIME. CALL LIGHT IN REACH.
--- NOTE | 2024-08-11 19:05 | NUR ---
REPORT RECEIVED FROM REYES WISDOM. pt RESTING IN THE BED. PRBC INFUSING PER ORDER. pt DENIES ANY OTHER NEEDS AT THIS TIME. CALL LIGHT WITHIN REACH.
--- NOTE | 2024-08-11 20:45 | NUR ---
PER PRIMARY RN, BLOOD TRANSFUSION RECENTLY COMPLETED. POST TRANSFUSION CBC ORDERED FOR 1 HR FROM NOW PER NURSE NOTIFY. LAB AWARE.
--- NOTE | 2024-08-11 20:56 | NUR ---
MIXED CROP AND LIVESTOCK FARMER OBTAINED VITALS. NO NEW I&O AT THIS TIME. PT STATES NO NEEDS AND CALL LIGHT WITHIN REACH.
[2024-08-11] MEDS ORDERED: MELATONIN 3 MG TAB PO PRN (21:00)
[2024-08-11] MEDS ORDERED: carvediloL 6.25 MG TAB PO SCH (21:00)
--- NOTE | 2024-08-11 21:30 | NUR ---
ASSESSMENT AND VITAL SIGNS DONE. pt BG CHECKED WITH A RESULTS OF 182. SS INSULIN ADMINISTERED. BLOOD ADMINISTRATION WAS FINISHED AT 2044, VS DONE AT 2099. NO S/SX OF INFUSION REACTION. pt DENIES ANY OTHER NEEDS AT THIS TIME. CPAP ON. SCD'S ON. CALL LIGHT WITHIN REACH.
[2024-08-11 21:54] LABS: BASOPHILS 0.6 % (0.2-1.2); EOSINOPHILS 4.9 % (0.8-7.0); HEMATOCRIT 23.6 % (40.1-51.0); HEMOGLOBIN 7.3 g/dL (13.7-17.5); LYMPHOCYTES 38.7 % (21.8-53.1); MCH 28.3 PG (25.7-32.2); MCHC 30.9 g/dL (32.3-36.5); MCV 91.5 fL (79.0-92.2); MONOCYTES 8.6 % (5.3-12.2); NEUTROPHILS 46.6 % (34.0-67.9); PLATELET COUNT 69 K/uL (163-337); RBC 2.58 M/uL (4.63-6.08)
--- NOTE | 2024-08-12 00:26 | NUR ---
pt RESTING IN THE BED WITH EYES CLOSED. RR EVEN AND UNLABORED. CPAP ON. pt DENIES ANY OTHER NEEDS AT THIS TIME. CALL LIGHT WITHIN REACH.
[2024-08-12 01:38] VITALS: BP 112/50
--- NOTE | 2024-08-12 01:40 | NUR ---
BD SPECIAL EDUCATION TEACHER OBTAINED VITALS AND I&O. PT STATES NO NEEDS AT THIS TIME. CALL LIGHT WITHIN REACH.
--- NOTE | 2024-08-12 03:51 | NUR ---
pt RESTING IN THE BED WITH EYES CLOSED. RR EVEN AND UNLABORED. CALL LIGHT WITHIN REACH.
[2024-08-12 04:23] VITALS: BP 126/46
--- NOTE | 2024-08-12 04:26 | NUR ---
CALL LIGHT ANSWERED. PT NEEDED TO USE BATHROOM. CLIENT INTEGRATION MANAGER ASSISTED PT TO STAND AT BEDSIDE AND USE URINAL. PT THEN STATED HE NEEDED TO HAVE A BM. PT ASSISTED TO BSC. PT HAD BM AND ASSISTED BACK TO BED. VITALS AND I&O OBTAINED. PT STATES NO FURTHER NEEDS AT THIS TIME. PT REFUSED TO PUT CPAP BELLE BACK ON STAING THAT HE WAS AWAKE FOR THE DAY. CALL LIGHT WITHIN REACH.
[2024-08-12 05:57] LABS: BASOPHILS 0.5 % (0.2-1.2); EOSINOPHILS 3.8 % (0.8-7.0); HEMATOCRIT 23.4 % (40.1-51.0); HEMOGLOBIN 7.2 g/dL (13.7-17.5); LYMPHOCYTES 37.5 % (21.8-53.1); MCH 27.8 PG (25.7-32.2); MCHC 30.8 g/dL (32.3-36.5); MCV 90.3 fL (79.0-92.2); MONOCYTES 6.5 % (5.3-12.2); NEUTROPHILS 51.2 % (34.0-67.9); PLATELET COUNT 69 K/uL (163-337); RBC 2.59 M/uL (4.63-6.08)
[2024-08-12 06:13] LABS: BUN/CREATININE RATIO 30.92 (6.0-28.6); CALCIUM 8.7 mg/dL (8.5-10.1); CREATININE, SERUM 0.97 mg/dL (0.70-1.30); MAGNESIUM 1.9 mg/dL (1.8-2.4)
--- NOTE | 2024-08-12 06:52 | NUR ---
CALL LIGHT ANSWERED. PT NEEDED TO USE BATHROOM. HANSARD REPORTER ASSISTED PT TO STAND AT BEDSIDE AND USE URINAL. PT THEN ASSISTED BACK TO BED. PT STATES NO FURTHER NEEDS AT THIS TIME. CALL LIGHT WITHIN REACH.
--- NOTE | 2024-08-12 07:11 | NUR ---
REPORT RECEIVED FROM ALYX ARCE. PATIENT AWAKE AND ALERT IN BED, NO REQUESTS. CALL LIGHT IN REACH.
--- NOTE | 2024-08-12 07:28 | NUR ---
UR CLINICAL REVIEW: 2 [facility] RAJAN, MEETS OBS FOR HYPERKALEMIA AND ANEMIA TREND LABS, BLOOD TRANSFUSION MEDICARE OBS 08/11/2024 @ [id number] ORDER MATCHES REG PLAN TO DC TO HOME WHEN MEDICALLY STABLE
[2024-08-12] MEDS ORDERED: SODIUM ZIRCONIUM CYCLOSILICATE 10 GM PACK PO ONE (08:15)
[2024-08-12 08:46] VITALS: BP 127/39
[2024-08-12 08:50] VITALS: BP 114/43
[2024-08-12] MEDS ORDERED: lisinopriL 20 MG TAB PO SCH (09:00)
--- NOTE | 2024-08-12 09:00 | NUR ---
INTO TO SEE PATIENT. PERSONAL HEALTH INFORMATION REVIEWED. PATIENT LIVES AT HOME WITH . PATIENT HAS 11 STEPS INTO THE HOME. HE STATES SOMETIMES HAVING DIFFCULTY BUT HAS RAILS AND A WALKER AT [place]. NO OXYGEN OR CPAP. STILL DRIVES. DAUGHTER LIVES WITH THEM. DENIES DIFFCULTY PAYING UTLITIES OR OBTAINING FOOD. PATIENT TO TAKE HIM HOME AT TIME OF DISCHARGE TODAY. HAS A DR. HARRY IN [place], [place] AT 1500. NO FUTHER CM NEEDS.
--- NOTE | 2024-08-12 09:10 | NUR ---
MEDICATION ADMINISTERED, SEE MAR. ASSESSMENT COMPLETE. PATIENT IS RESTING IN RECLINER WITH BLE ELEVATED AFTER COMPLETING BREAKFAST. BOTH IVs FLUSH WNL. PATIENT DENIES ANY PAIN OR DISCOMFORT. PATIENT REQUESTS TO USE URINAL AND VOIDS 100ML OF CLEAR, YELLOW URINE. PATIENT REMAINS IN RECLINER WITH BLE ELEVATED. CALL LIGHT IN REACH.
[2024-08-12 10:06] VITALS: BP 135/51
--- NOTE | 2024-08-12 10:08 | NUR ---
MED REC COMPLETE
--- NOTE | 2024-08-12 10:30 | NUR ---
IVS ARE OUT. DISCHARGE VITALS ARE DONE.
[2024-08-12] MEDS ORDERED: PHARMACY RENAL DOSE ADJUSTMENT 1 DOSE MISC PO SCH (12:00)
[2024-09-06] MEDS ORDERED: NOVOLIN 70100 UNIT/1 SUB-Q (11:43)
== END 2024-08-12 10:23 | disposition home or self-care (01) ==
LOC: ED 12:22 → MS 12:24
PROVIDERS: Emergency Medicine; ADMIT Student in an Organized Health Care Education/Training Program; ATTEND Student in an Organized Health Care Education/Training Program
DX: E87.5 Hyperkalemia (principal); D64.9 Anemia, unspecified; I10 Essential (primary) hypertension; E11.9 Type 2 diabetes mellitus without complications; D61.818 Other pancytopenia; Z79.4 Long term (current) use of insulin; Z79.84 Long term (current) use of oral hypoglycemic drugs; Z79.82 Long term (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; Z79.899 Other long term (current) drug therapy
CPT/HCPCS: 36415; 80048; 80053; 83735; 84132; 85025; 86850; 86900; 86901; 86922; 93005; 93010; 94644; 94660; 94762; 96365; 96375; 99284-25; G0378; J1815; P9016